=== PATIENT | male | born 1980 ===

== ENCOUNTER 2017-06-02 07:27 | Emergency (ER) | payer BC ==
[2017-06-02 07:33] VITALS: BP 161/94
--- NOTE | 2017-06-02 08:17 | UC ---
UC General HPI - HPI Summary HPI Summary: 37 y/o male presents to the urgent care c/o of fever and body aches since 2016. Pt states he had a fever of 101 and 102 w/ join pains and VIRK over the weekend. He has been taking some Motrin. He reports he has been exposed to tick bites about 2 months ago w/o taking any prophylactic treatment. Today he feels sore and weak. Pt denies SOB, rash, chest pain, N/V/D or abdominal pain. Pt has not other complains. - History of Current Complaint Chief Complaint: UCGeneralIllness Stated Complaint: FEVER Time Seen by Provider: 06/02/17 07:59 Hx Obtained From: Patient Onset/Duration: Gradual Onset, Lasting Days Timing: Constant Onset Severity: Moderate Current Severity: Mild Pain Intensity: 4 - Headache Associated Signs & Symptoms: Positive: Fever, Headache, Weakness - Allergy/Home Medications Allergies/Adverse Reactions: Allergies Allergy/AdvReac Type Severity Reaction Status Date / Time No Known Allergies Allergy Verified 09/01/13 13:58 Home Medications: Home Medications Ibuprofen [Advil] 600 mg PO 06/02/17 [History] PMH/Surg Hx/FS Hx/Imm Hx Previously Healthy: Yes Respiratory History: Asthma - Surgical History Surgical History: None - Family History Known Family History: Positive: Cardiac Disease, Diabetes - Social History Occupation: Employed Full-time Lives: With Family Alcohol Use: Occasionally Substance Use Type: None Smoking Status (MU): Light Every Day Tobacco Smoker Type: Cigarettes Review of Systems Constitutional: Fever - at home Skin: Negative Eyes: Negative ENT: Negative Respiratory: Negative Cardiovascular: Negative Gastrointestinal: Negative Genitourinary: Negative Motor: Negative Neurovascular: Negative Musculoskeletal: Arthralgia Neurological: Headache, Weakness All Other Systems Reviewed And Are Negative: Yes Physical Exam Triage Information Reviewed: Yes Appearance: Well-Appearing, No Pain Distress, Well-Nourished Vital Signs: Initial Vital Signs Temp 98.7 F 06/02/17 07:30 Pulse 97 06/02/17 07:30 Resp 18 06/02/17 07:30 BP 161/94 06/02/17 07:30 Pulse Ox 99 06/02/17 07:30 Vital Signs Reviewed: Yes Eye Exam: Normal Eyes: Positive: Conjunctiva Clear ENT Exam: Normal ENT: Positive: Normal ENT inspection, Hearing grossly normal, Pharynx normal, TMs normal Dental Exam: Normal Neck exam: Normal Neck: Positive: Supple, Nontender, No Lymphadenopathy Respiratory Exam: Normal Respiratory: Positive: Chest non-tender, Lungs clear, Normal breath sounds Cardiovascular Exam: Normal Cardiovascular: Positive: RRR, No Murmur, Pulses Normal, Brisk Capillary Refill Abdominal Exam: Normal Abdomen Description: Positive: Nontender, No Organomegaly, Soft. Negative: CVA Tenderness (R), CVA Tenderness (L) Bowel Sounds: Positive: Present Musculoskeletal Exam: Normal Musculoskeletal: Positive: Strength Intact, ROM Intact, No Edema Neurological Exam: Normal Psychological Exam: Normal Skin Exam: Normal Course/Dx - Course Course Of Treatment: 37 y/o male presents to the urgent care c/o of fever and body aches since 05/29/2017. Pt states he had a fever of 101 and 102 w/ join pains and VIRK over the weekend. He has been taking some Motrin. He reports he has been exposed to tick bites about 2 months ago w/o taking any prophylactic treatment. Today he feels sore and weak. Pt denies SOB, rash, chest pain, N/V/ D or abdominal pain. Hx obtained. Pt w/ tick expsore and requests Lyme serology. Lyme serology ordered. Pt Rx Doxycycline PO. Advised to take the full course of the ABX despite the lyme serology result. F/u with PCP for further evaluation and treatment. Pt BP elevated today, advised decrese salt in diet and to monitor BP, f/u with PCP for further management. pt understood and agreed w/ plan of care. - Differential Dx - Multi-Symptom Differential Diagnoses: Other - tick born illness, URI, influenza, arthralgia, Provider Diagnoses: 1- Fever, joint pain and headache r/o Lyme disease. 2- Elevated blood pressure w/o Hx of HTN Discharge - Discharge Plan Condition: Stable Disposition: HOME Prescriptions: DOXYcycline CAP(*) [DOXYcycline 100MG CAP(*)] 100 mg PO BID #42 cap Patient Education Materials: Lyme Disease (ED), Low Sodium Diet (ED) Referrals: No Primary Care Phys,NOPCP [Primary Care Provider] - [facility] [[facility]] Briana SOTELO,Corby Alfaro [Medical Doctor] - If Needed Additional Instructions: Please take full course of antibiotic even if the Lyme serology returns negative. Lyme serology ordered and sent to lab, you will be contacted if abnormal labs. If Lyme Serology positive please f/u with Dr Warren specialized in Lyme serology. Take ibuprofen as instructed after meals to alleviate fever and swelling. If symptoms do not improve or worsen please return to the urgent care or f/u with your PCP for further evaluation and treatment. Your BP is elevated today, please decrease salt in your diet and monitor your BP and f/u with your PCP for further evaluation and treatment.
--- NOTE | 2017-06-03 18:19 | ED ---
Progress - Progress Note Progress Note: CALL PATIENT, LYME (+), WESTERN BLOT PENDING, CONTINUE ABX, F/U PCP Course/Dx - Course Course Of Treatment: 37 y/o male presents to the urgent care c/o of fever and body aches since 05/29/2017. Pt states he had a fever of 101 and 102 w/ join pains and VIRK over the weekend. He has been taking some Motrin. He reports he has been exposed to tick bites about 2 months ago w/o taking any prophylactic treatment. Today he feels sore and weak. Pt denies SOB, rash, chest pain, N/V/ D or abdominal pain. Hx obtained. Pt w/ tick expsore and requests Lyme serology. Lyme serology ordered. Pt Rx Doxycycline PO. Advised to take the full course of the ABX despite the lyme serology result. F/u with PCP for further evaluation and treatment. Pt BP elevated today, advised decrese salt in diet and to monitor BP, f/u with PCP for further management. pt understood and agreed w/ plan of care. - Diagnoses Provider Diagnoses: Rash
[2017-06-04 14:39] LABS: Lyme Disease IgG Ab WB Negative (Negative)
== END 2017-06-02 08:40 | disposition home or self-care (01) ==
LOC: UCEAST 07:27
DX: R50.9 Fever, unspecified (principal); M25.50 Pain in unspecified joint; R51 Headache; R03.0 Elevated blood-pressure reading, without diagnosis of hypertension; J45.909 Unspecified asthma, uncomplicated; F17.210 Nicotine dependence, cigarettes, uncomplicated
CPT/HCPCS: 86617; 86618; 99202; G0463